=== PATIENT | female | born 1995 | race Caucasian/White ===

== ENCOUNTER 2019-07-14 04:06 | Outpatient (CLI) | payer BC ==
[~2019-07-14] VITALS: Ht 165.1 cm; Wt 61.4 kg
[2019-07-14 04:37] VITALS: BP 130/83
[2019-07-16] MEDS ORDERED: IBUP-1222 PO (11:50)
== END 2019-07-14 05:28 | disposition home or self-care (01) ==
LOC: LDOP 04:06
PROVIDERS: ATTEND Obstetrics & Gynecology
DX: O26.893 Other specified pregnancy related conditions, third trimester (principal); R10.9 Unspecified abdominal pain; Z3A.39 39 weeks gestation of pregnancy
CPT/HCPCS: 59025; 89060; 99211; G0463; Q0114